=== PATIENT | female | born 1970 | race Caucasian/White ===

== ENCOUNTER 2017-08-15 07:41 | Emergency (ER) | payer MEDICAID ==
[~2017-08-15] VITALS: Ht 162.6 cm; Wt 55.0 kg
[~2017-08-15 07:41] MED LIST: AMIT-189 PO; AZIT250T PO; BENZ-16 PO; OMEP20TA5 PO; ONDA8TAB9 PO
[2017-08-15] MEDS ORDERED: ketorolac trometh. 30mg/ml inj. IV ONE (08:00)
[2017-08-15] MEDS ORDERED: diphenhydrAMINE 50 mg/ml inj IV ONE (08:00)
[2017-08-15] MEDS ORDERED: proCHLORperazine 10 MG/2 ml inj IV ONE (08:00)
[2017-08-15] MEDS ORDERED: normal saline 1000ML IV soln IVB ONE (08:00)
[2017-08-15 08:34] LABS: BASOPHILS % (AUTO) 0.3 % (0-1); EOSINOPHILS % (AUTO) 0 % (0-6); HEMATOCRIT 37.8 % (35.0-45.0); HEMOGLOBIN 13.1 g/dl (12.0-16.0); LYMPHOCYTES # (AUTO) 1.9 X10'3 (1.1-4.8); LYMPHOCYTES % (AUTO) 15.5 % (21-51); MEAN CORPUSCULAR HEMOGLOBIN 28.4 PG (27.0-31.0); MEAN CORPUSCULAR HGB CONC 34.8 % (33.0-36.5); MEAN CORPUSCULAR VOLUME 81.8 FL (78-98); MEAN PLATELET VOLUME 8.7 FL (7.4-10.4); MONOCYTES # (AUTO) 0.7 X10'3 (0-0.9); MONOCYTES % (AUTO) 5.8 % (2-12); NEUTROPHILS # (AUTO) 9.8 X10'3 (1.8-7.7); NEUTROPHILS % (AUTO) 78.4 % (42-75); PLATELET COUNT 212 X10'3 (140-440); RED BLOOD COUNT 4.62 X10'6 (4.20-5.60); RED CELL DISTRIBUTION WIDTH 12.7 % (11.5-14.5); WHITE BLOOD COUNT 12.4 X10'3 (4.5-11.0)
[2017-08-15 08:47] LABS: ALANINE AMINOTRANSFERASE 21 U/L (12-78); ALBUMIN 3.7 G/DL (3.4-5.0); ALBUMIN/GLOBULIN RATIO 0.7 (1.1-1.5); ALKALINE PHOSPHATASE 116 IU/L (46-116); ANION GAP 11 (8-16); ASPARTATE AMINO TRANSFERASE 17 U/L (10-37); BILIRUBIN,TOTAL 0.7 MG/DL (0.1-1.0); BLOOD UREA NITROGEN 6 MG/DL (7-18); BUN/CREATININE RATIO 8.1 (6.6-38.0); CALCIUM 9.5 MG/DL (8.5-10.1); CHLORIDE 102 MMOL/L (99-107); CREATININE 0.74 MG/DL (0.40-0.90); GLUCOSE 105 MG/DL (70-104); POTASSIUM 3.6 MMOL/L (3.5-5.1); SODIUM 141 MMOL/L (135-145); TOTAL CARBON DIOXIDE 27.9 MMOL/L (24-32); TOTAL PROTEIN 8.7 G/DL (6.4-8.2); eGFR 84 ML/MIN
[2017-08-15] MEDS ORDERED: proCHLORperazine 10 MG/2 ml inj IM ONE (08:50)
[2017-08-15] MEDS ORDERED: diphenhydrAMINE 50 mg/ml inj IM ONE (08:50)
[2017-08-15] MEDS ORDERED: ketorolac trometh inj. 60 MG/2 ML VIAL IM ONE (08:50)
[2017-08-15 10:45] VITALS: BP 116/71
== END 2017-08-15 10:55 | disposition home or self-care (01) ==
LOC: ER 07:42
DX: G43.909 Migraine, unspecified, not intractable, without status migrainosus (principal); F12.90 Cannabis use, unspecified, uncomplicated; Z56.0 Unemployment, unspecified; Z88.5 Allergy status to narcotic agent; Z98.51 Tubal ligation status; Z79.899 Other long term (current) drug therapy
CPT/HCPCS: 36415; 80053; 85025; 96361; 96374; 96375; 99284; J0780; J1200; J1885; J7030

== ENCOUNTER 2017-11-25 06:57 | Emergency (ER) | payer MEDICAID ==
[~2017-11-25] VITALS: Ht 162.6 cm; Wt 63.1 kg
[~2017-11-25 06:57] MED LIST changes: -BENZ-16 PO
[2017-11-25] MEDS ORDERED: proCHLORperazine 10 MG/2 ml inj IV ONE (07:25)
[2017-11-25] MEDS ORDERED: diazepam 5mg tablet PO ONE ×2 (07:25→08:40)
[2017-11-25] MEDS ORDERED: diphenhydrAMINE 50 mg/ml inj IV ONE (07:25)
[2017-11-25] MEDS ORDERED: ketorolac trometh. 30mg/ml inj. IV ONE (07:25)
[2017-11-25] MEDS ORDERED: dexamethasone sod phosphate 10mg/ml inj IV STA (08:38)
[2017-11-25] MEDS ORDERED: PROC-8 PEG (08:40)
[2017-11-25 08:56] VITALS: BP 105/72
== END 2017-11-25 08:57 | disposition home or self-care (01) ==
LOC: ER 06:58
DX: G43.909 Migraine, unspecified, not intractable, without status migrainosus (principal); F12.90 Cannabis use, unspecified, uncomplicated; Z88.6 Allergy status to analgesic agent; Z88.5 Allergy status to narcotic agent; Z79.899 Other long term (current) drug therapy; Z56.0 Unemployment, unspecified
CPT/HCPCS: 96374; 96375; 99284; J0780; J1100; J1200; J1885

== ENCOUNTER 2023-10-23 09:25 | Outpatient (CLI) | payer MEDICAID ==
[~2023-10-23 09:25] MED LIST changes: -AMIT-189 PO; +AMIT-311 PO; +OMEP20TA43 PO; -OMEP20TA5 PO; +PROC-8 PEG
== END 2023-10-23 23:59 | disposition home or self-care (01) ==
LOC: RAD 09:25
PROVIDERS: ATTEND Family Medicine
DX: R07.81 Pleurodynia (principal)
CPT/HCPCS: 71100

== ENCOUNTER 2025-03-31 14:27 | Outpatient (CLI) | payer MEDICAID ==
--- NOTE | 2025-03-31 15:24 | RADIOLOGY REPORT ---
CLINICAL HISTORY: UNSPECIFIED HYDRONEPHROSIS TECHNIQUE: CT of the abdomen and pelvis was performed without intravenous contrast. This exam was performed according to our departmental dose optimization program. Up-to-date CT equipment and radiation dose reduction techniques are utilized as appropriate. CTDI: 13.57+ 0.14 DLP: 644.24 WID: COMPARISON: None FINDINGS: Lower Thorax: Unremarkable. Liver and Biliary system: Grossly unremarkable unopacified liver. There is an intermediate density layering in the gallbladder. No biliary ductal dilatation. Spleen: Unremarkable. Adrenal Glands and Kidneys: Normal adrenal glands. There is no hydronephrosis. There is left upper pole renal cortical scarring. There are tiny nonobstructing bilateral renal calculi, sub 5 mm. Pancreas and Retroperitoneum: Unremarkable. Aorta and Major Vessels: Aortoiliac vessels are normal in caliber with mild calcified atherosclerotic plaque. Bowel, Mesentery and Peritoneal space: Normal caliber small and large bowel. Moderate retained stool in the colon. Normal appendix. There is no free air or fluid collection. Pelvis: Unremarkable. Abdominal wall and Osseous Structures: Minor lower lumbar spondylosis. No destructive osseous lesion. IMPRESSION: 1. No hydronephrosis in either kidney. 2. Tiny nonobstructing bilateral renal calculi. 3. Left upper pole renal scarring. 4. Intermediate density layers in the gallbladder which could reflect sludge. 5. Moderate retained stool in the colon.
== END 2025-03-31 23:59 | disposition home or self-care (01) ==
LOC: RAD 14:27
PROVIDERS: ATTEND Nurse Practitioner
DX: N20.0 Calculus of kidney (principal); N13.30 Unspecified hydronephrosis; M47.816 Spondylosis without myelopathy or radiculopathy, lumbar region; N28.9 Disorder of kidney and ureter, unspecified
CPT/HCPCS: 74176